=== PATIENT | female | born 1980 | race Caucasian/White ===

== ENCOUNTER 2018-11-04 11:24 | Outpatient (RCR) | payer OTHER ==
[~2018-11-04 11:24] MED LIST: AMOXICILLIN 50500 MG PO; NO HOME MEDICATIONS; NORCO 325 MG-51 TAB PO
[2018-12-20] MEDS ORDERED: NAPROSYN500 MG PO (18:16)
[2018-12-20] MEDS ORDERED: NORCO 325 MG-51 TAB PO (18:16)
== END 2019-01-07 15:38 | disposition home or self-care (01) ==
LOC: WSOH 11:24
DX: S39.012A Strain of muscle, fascia and tendon of lower back, initial encounter (principal); S33.5XXA Sprain of ligaments of lumbar spine, initial encounter; Y93.H1 Activity, digging, shoveling and raking; Y92.214 College as the place of occurrence of the external cause; Y99.0 Civilian activity done for income or pay

== ENCOUNTER 2018-12-17 04:37 | Emergency (ER) | payer BC ==
[~2018-12-17] VITALS: Ht 175.3 cm; Wt 99.5 kg
[2018-12-17 05:11] LABS: COLLECTION METHOD CLEAN CATCH
[2018-12-17 05:18] LABS: MUCOUS Present /lpf; PH 5 (5-8); URINE APPEARANCE Clear; URINE BACTERIA None Seen /hpf; URINE BILIRUBIN Negative (NEGATIVE); URINE BLOOD Negative (NEGATIVE); URINE COLOR Yellow; URINE GLUCOSE Negative (NEGATIVE); URINE KETONE Negative (NEGATIVE); URINE LEUKOCYTE ESTERASE Negative (NEGATIVE); URINE NITRATE Negative (NEGATIVE); URINE PROTEIN(semi-quant) Negative (NEGATIVE); URINE RBC 0-2 /hpf; URINE UROBILINOGEN Negative (NEGATIVE)
[2018-12-17 05:24] LABS: BASO % 0.4 % (0.0-2.0); EOS # 0.2 (0.0-0.7); EOS % 2.8 % (0-4.0); GRAN # 4.4 (1.4-6.5); GRAN % 53.3 % (42.2-75.2); HEMOGLOBIN 13.7 g/dl (12.5-16.0); LYMPH # 3.2 (1.2-3.4); LYMPH % 39.1 % (20.0-51.0); MEAN CELL VOLUME 99 fl (80.0-100.0); MEAN CORPUSCULAR HEMOGLOBIN 34 pg (27.0-31.0); MEAN CORPUSCULAR HGB CONC 34 g/dl (33.0-37.0); MEAN PLATELET VOLUME 13.4 fl (7.4-10.4); MONO # 0.3 (0.1-0.6); MONO % 4.2 % (1.7-9.3); PLATELET COUNT 192 K/mm3 (130-400); RED BLOOD COUNT 4.05 M/mm3 (4.10-5.30); REDCELL DISTRIBUTION WIDTH-CV 12.4 % (11.5-14.5)
[2018-12-17 05:35] VITALS: TEMP 97.8
[2018-12-17 05:36] LABS: CALCIUM 8.9 mg/dL (8.4-10.2); CREATININE, serum 0.76 (0.52-1.25); POTASSIUM 3.8 mmol/L (3.4-5.0)
[2018-12-17 05:40] LABS: C-REACTIVE PROTEIN 0.5 mg/dL (0.0-0.9)
[2018-12-17 07:29] VITALS: BP 118/85; PULSE 60
== END 2018-12-17 07:32 | disposition home or self-care (01) ==
LOC: COL.ER 04:37
PROVIDERS: Emergency Medicine
DX: R10.2 Pelvic and perineal pain (principal); Z90.89 Acquired absence of other organs
CPT/HCPCS: J1170; J7030

== ENCOUNTER 2018-12-20 13:36 | Emergency (ER) | payer BC ==
[~2018-12-20] VITALS: Ht 175.3 cm; Wt 98.6 kg
[2018-12-20 13:54] VITALS: BP 142/89; TEMP 97.8
[2018-12-20 17:41] LABS: ALBUMIN 4.3 gm/dL (3.5-5.0); BASO % 0.3 % (0.0-2.0); BILIRUBIN,TOTAL 0.5 mg/dL (0.0-1.0); C-REACTIVE PROTEIN 1.1 mg/dL (0.0-0.9); CALCIUM 9.7 mg/dL (8.4-10.2); CREATININE, serum 0.73 (0.52-1.25); EOS # 0.2 (0.0-0.7); EOS % 2.1 % (0-4.0); GRAN # 5.7 (1.4-6.5); GRAN % 53.5 % (42.2-75.2); HEMATOCRIT 42.7 % (37.0-47.0); HEMOGLOBIN 14.5 g/dl (12.5-16.0); LYMPH # 4.1 (1.2-3.4); LYMPH % 38.5 % (20.0-51.0); MEAN CELL VOLUME 99 fl (80.0-100.0); MEAN CORPUSCULAR HEMOGLOBIN 34 pg (27.0-31.0); MEAN CORPUSCULAR HGB CONC 34 g/dl (33.0-37.0); MEAN PLATELET VOLUME 13.5 fl (7.4-10.4); MONO # 0.6 (0.1-0.6); MONO % 5.4 % (1.7-9.3); PLATELET COUNT 188 K/mm3 (130-400); POTASSIUM 3.7 mmol/L (3.4-5.0); RED BLOOD COUNT 4.31 M/mm3 (4.10-5.30); REDCELL DISTRIBUTION WIDTH-CV 12.3 % (11.5-14.5); TOTAL PROTEIN 7.9 gm/dL (6.4-8.2)
[2018-12-20] MEDS ORDERED: NAPROSYN500 MG PO (18:16)
[2018-12-20] MEDS ORDERED: NORCO 325 MG-51 TAB PO (18:16)
[2018-12-20 22:47] VITALS: PULSE 75
== END 2018-12-20 18:27 | disposition home or self-care (01) ==
LOC: COL.ER 13:36
PROVIDERS: Emergency Medicine
DX: R10.30 Lower abdominal pain, unspecified (principal); F17.210 Nicotine dependence, cigarettes, uncomplicated; Z90.89 Acquired absence of other organs
CPT/HCPCS: J1885; J2405; J7030

== ENCOUNTER 2019-08-04 06:30 | Emergency (ER) | payer SELFPAY ==
[~2019-08-04] VITALS: Ht 175.3 cm; Wt 100.0 kg
[~2019-08-04 06:30] MED LIST changes: +NAPROSYN500 MG PO
[2019-08-04 07:14] LABS: BASO % 0.4 % (0.0-2.0); EOS # 0.2 (0.0-0.7); EOS % 1.9 % (0-4.0); GRAN # 5.1 (1.4-6.5); GRAN % 50.6 % (42.2-75.2); HEMATOCRIT 39.7 % (37.0-47.0); HEMOGLOBIN 13.7 g/dl (12.5-16.0); LYMPH # 4.2 (1.2-3.4); LYMPH % 41.8 % (20.0-51.0); MEAN CELL VOLUME 96 fl (80.0-100.0); MEAN CORPUSCULAR HEMOGLOBIN 33 pg (27.0-31.0); MEAN CORPUSCULAR HGB CONC 35 g/dl (33.0-37.0); MEAN PLATELET VOLUME 13.1 fl (7.4-10.4); MONO # 0.5 (0.1-0.6); MONO % 4.9 % (1.7-9.3); PLATELET COUNT 200 K/mm3 (130-400); RED BLOOD COUNT 4.14 M/mm3 (4.10-5.30); REDCELL DISTRIBUTION WIDTH-CV 12.2 % (11.5-14.5)
[2019-08-04 08:06] LABS: COLLECTION METHOD CLEAN CATCH
[2019-08-04 08:15] LABS: PH 6 (5-8); URINE APPEARANCE Cloudy; URINE BACTERIA Rare /hpf; URINE BILIRUBIN Negative (NEGATIVE); URINE BLOOD 3+ (NEGATIVE); URINE COLOR Red; URINE GLUCOSE Negative (NEGATIVE); URINE KETONE Negative (NEGATIVE); URINE LEUKOCYTE ESTERASE Negative (NEGATIVE); URINE NITRATE Negative (NEGATIVE); URINE PROTEIN(semi-quant) 1+ (NEGATIVE); URINE RBC >50 /hpf; URINE UROBILINOGEN Negative (NEGATIVE)
[2019-08-04 10:00] VITALS: BP 148/79; PULSE 69; TEMP 98.5
== END 2019-08-04 10:00 | disposition home or self-care (01) ==
LOC: COL.ER 06:30
PROVIDERS: Emergency Medicine
DX: O03.9 Complete or unspecified spontaneous abortion without complication (principal); Z90.89 Acquired absence of other organs
CPT/HCPCS: J2405; J7030

== ENCOUNTER 2023-11-12 08:58 | Emergency (ER) | payer OTHER ==
[~2023-11-12] VITALS: Ht 175.3 cm; Wt 93.6 kg
[2023-11-12 09:02] VITALS: TEMP 97.5
[2023-11-12] MEDS ORDERED: PROVENTIL0.09 MG/A1 IH (09:56)
[2023-11-12] MEDS ORDERED: PREDNISONE20 MG PO (09:56)
[2023-11-12] MEDS ORDERED: ZITHROMAX Z PA250 MG PO (09:56)
[2023-11-12] MEDS ORDERED: Albuterol/Ipratropium 3 MG-0.5 MG/3 ML Neb Soln IH ONE (10:00)
[2023-11-12 11:24] VITALS: BP 122/93; PULSE 63
--- NOTE | 2023-11-12 12:21 | NUR ---
Barrel Tester met with patient in response to social media community manager consult. Patient lives alone in [place] and has been from her , [place] for about a year. Patient lost insurance coverage when she from her and hasn't been seen by a primary care provider in over a year. Patient was previously seeing Dr. Alvarez at [facility]. Patient is agreeable to CHINTAN giving a referral to [facility] to get her set up with primary care. Patient also advised she is out of her medications and does not have a provider to prescribe them. Patient reported she has COPD and does not have an inhaler so she used her cousin's this morning. SW discussed doing a medication voucher and patient is agreeable to this and can get a ride to [employer]. CHINTAN completed a voucher totaling $51.01. Patient stated she is currently employed at [employer] but since the work is seasonal, they do not offer insurance. CHINTAN updated the ED provider and RN on above. CHINTAN left a detailed message with the [facility] requesting they contact patient to set her up an appointment.
== END 2023-11-12 11:25 | disposition home or self-care (01) ==
LOC: COL.ER 08:58
DX: J20.9 Acute bronchitis, unspecified (principal); J44.0 Chronic obstructive pulmonary disease with (acute) lower respiratory infection

== ENCOUNTER 2024-06-16 18:31 | Emergency (ER) | payer OTHER ==
[~2024-06-16] VITALS: Ht 175.3 cm; Wt 95.9 kg
[~2024-06-16 18:31] MED LIST changes: +PREDNISONE20 MG PO; +PROVENTIL0.09 MG/A1 IH; +ZITHROMAX Z PA250 MG PO
[2024-06-16 18:40] VITALS: BP 152/98; TEMP 98.2
[2024-06-16] MEDS ORDERED: Ibuprofen 600 MG TAB PO ONE (20:45)
[2024-06-16] MEDS ORDERED: Acetaminophen 500 MG TAB PO ONE (20:45)
[2024-06-16] MEDS ORDERED: Tdap Vaccine 0.5 ML SYRINGE IM ONE (20:45)
[2024-06-16 22:53] VITALS: PULSE 82
== END 2024-06-16 22:53 | disposition home or self-care (01) ==
LOC: COL.ER 18:31
DX: S46.912A Strain of unspecified muscle, fascia and tendon at shoulder and upper arm level, left arm, initial encounter (principal); S60.311A Abrasion of right thumb, initial encounter; V49.40XA Driver injured in collision with unspecified motor vehicles in traffic accident, initial encounter; Y92.410 Unspecified street and highway as the place of occurrence of the external cause